=== PATIENT | male | born 1985 | race Caucasian/White ===

== ENCOUNTER 2016-07-28 09:20 | Emergency (ER) | payer BC ==
[~2016-07-28] VITALS: Ht 190.5 cm; Wt 90.1 kg
[2016-07-28 09:56] LABS: EOSINOPHIL (%) 0.1 % (0-5); HEMATOCRIT 46.5 % (38.0-50.0); IMMATURE GRANULOCYTE (%) 0.7 % (0.0-0.7); IMMATURE GRANULOCYTE COUNT 0.1 K/uL; LYMPHOCYTE COUNT 2.7 K/uL (1.0-2.8); MCH 31.5 PG (29.0-34.0); MCHC 35.1 G/DL (30.0-36.0); MCV 89.9 FL (86-99); MEAN PLAT.VOLUME 8.8 uM^3 (9.0-12.4); MONOCYTE (%) 8.7 % (3-12); MONOCYTE COUNT 1.4 K/uL (0-0.8); NEUTROPHIL (%) 73.5 % (45-76); PLATELET COUNT 437 K/uL (156-360); RBC DIS.WIDTH-CV 12.2 % (11.8-14.6); RBC DIS.WIDTH-SD 40.7 % (39-53); RED BLOOD COUNT 5.17 M/uL (4.00-5.50); WHITE BLOOD COUNT 16.3 K/uL (4.1-10.2)
[2016-07-28 10:11] LABS: CHLORIDE 104 mEq/L (99-109); POTASSIUM 4.3 mEq/L (3.7-5.4); SODIUM 139 mEq/L (136-147)
[2016-07-28 10:14] LABS: GLUCOSE 90 mg/dL (70-99)
[2016-07-28 10:15] LABS: ANION GAP 12 MEQ/L (2-14)
[2016-07-28 10:16] LABS: TOTAL BILIRUBIN 0.4 mg/dL (0.0-1.0)
[2016-07-28 10:17] LABS: ALKALINE PHOSPHATASE 68 IU/L (3-129); GFR ESTIMATE (CALCULATED) > 59 mL/min/
[2016-07-28 10:18] LABS: UREA NITROGEN (BUN) 11 mg/dL (9-23)
[2016-07-28 10:21] LABS: LIPASE 15 U/L (1.0-51.0)
[2016-07-28 10:50] LABS: C DIFF TOXIN NEGATIVE (NEGATIVE)
[2016-07-28 10:51] LABS: PROBE CHECK PASS; SPECIMEN PROCESSING CONTROL PASS
[2016-07-28] MEDS ORDERED: FLAGYL500 MG PO (14:46)
[2016-07-28 14:55] VITALS: BP 125/79
== END 2016-07-28 15:00 | disposition home or self-care (01) ==
LOC: EME 09:20
PROVIDERS: Emergency Medicine
DX: R19.7 Diarrhea, unspecified (principal)
CPT/HCPCS: 74177; 80053; 83605; 83690; 85025; 87177; 87493; 99281; 99285; J7030